=== PATIENT | male | born 1975 | race Caucasian/White ===

== ENCOUNTER 2017-06-17 01:26 | Emergency (ER) | payer BC ==
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
[2017-06-17 02:04] LABS: CHLORIDE,CL 102 mmol/L (98-110); SODIUM,NA 140 mmol/L (136-146)
[2017-06-17 04:55] VITALS: BP 115/63
--- NOTE | 2017-06-17 11:31 | CT ---
EXAM DATE: 06/17/17 PATIENT'S AGE: 42 Patient: YEVGENIY DUARTE Facility: [place], [place] : 1975 Study: CT Head STROKE PROTOCOL -06/17/2017 1:48:56 AM Ordering Physician: GINGER Final Report: INDICATION: Weakness TECHNIQUE: Head CT without contrast. COMPARISON: None FINDINGS: CSF spaces: Within normal limits for age. Brain parenchyma: Normal price-white junction. No sign of mass, hemorrhage, or midline shift. Skull base and calvarium: The visualized paranasal sinuses and mastoid air cells demonstrate no acute or significant findings. The visualized orbits are grossly unremarkable. No skull fractures. IMPRESSION: IMPRESSION:No acute findings. These findings were discussed with Dr Aguirre at 1: 55 a.m. on June 17, 2017. Please note that all CT scans at this facility use dose modulation, iterative reconstruction, and/or weight-based dosing when appropriate to reduce radiation dose to as low as reasonably achievable. Dictated by Carmen Cannon MD @ Jun 17 2017 1:55AM (Electronic Signature) Report Signed by Proxy. MTDD
--- NOTE | 2017-06-17 11:32 | CR ---
EXAM DATE: 06/17/17 PATIENT'S AGE: 42 Patient: YEVGENIY DUARTE Facility: [place], [place] Site . Site : 1975 Study: XRay Chest [id number] 2:40:27 AM Ordering Physician: Timothy Castillo Final Report: Indication: Syncopal Technique: Chest 1 view Comparison: January 16, 2017. Findings/Impression: Normal cardiomediastinal silhouette. Clear lungs and pleural spaces. Osseous structures are intact. Dictated by Carmen Cannon MD @ Jun 17 2017 3:04AM (Electronic Signature) Report Signed by Proxy. [facility]
== END 2017-06-17 05:09 | disposition home or self-care (01) ==
LOC: MW.ED 01:26
DX: R55 Syncope and collapse (principal); F17.210 Nicotine dependence, cigarettes, uncomplicated; Z88.1 Allergy status to other antibiotic agents; Z88.5 Allergy status to narcotic agent; Z88.0 Allergy status to penicillin; Z79.82 Long term (current) use of aspirin; Z79.899 Other long term (current) drug therapy
CPT/HCPCS: 70450; 71010; 80053; 80305; 84484; 85025; 85610; 93005; 99285; G0480; 99283

== ENCOUNTER 2017-10-24 12:18 | Emergency (ER) | payer OTHER ==
[2017-10-24] MEDS ORDERED: Lidocaine 1% 20 ML MDV INJECT ONE (12:56)
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
[2017-10-24 13:38] VITALS: BP 109/71
== END 2017-10-24 13:33 | disposition home or self-care (01) ==
LOC: MW.ED 12:18
DX: L02.413 Cutaneous abscess of right upper limb (principal); L03.113 Cellulitis of right upper limb; F17.210 Nicotine dependence, cigarettes, uncomplicated; Z88.1 Allergy status to other antibiotic agents; Z88.5 Allergy status to narcotic agent; Z88.0 Allergy status to penicillin; Z79.899 Other long term (current) drug therapy
CPT/HCPCS: 10060; 99283

== ENCOUNTER 2018-10-02 11:47 | Observation (INO) | payer BC, OTHER ==
[2018-10-02] MEDS ORDERED: Sodium Chloride 0.9% 10 ML Syringe FLUSH PRN (11:52)
[2018-10-02] MEDS ORDERED: Sodium Chloride 0.9% 2.5 ML Syringe FLUSH PRN (11:52)
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
[2018-10-02 12:32] LABS: CHLORIDE,CL 104 mmol/L (98-107); SODIUM,NA 138 mmol/L (136-148)
--- NOTE | 2018-10-02 12:59 | CT ---
INDICATION: Left arm and leg numbness. Prior stroke. COMPARISON: 06/17/2017. TECHNIQUE: Axial CT of the head without contrast. FINDINGS: Normal brain parenchymal morphology. No acute intracranial hemorrhage, acute infarct, focal edema, mass effect, or fracture. No midline shift. No abnormal ventricular dilatation. Normal calvarium and skull base. Mild mucosal thickening of the visualized ethmoid air cells. Remaining visualized paranasal sinuses and mastoid air cells are clear. Impression : 1. No acute intracranial abnormality. 2. Normal brain parenchymal morphology. Please note that all CT scans at this facility use dose modulation, iterative reconstruction, and/or weight-based dosing when appropriate to reduce radiation dose to as low as reasonably achievable. Dictated by Eulogio Arias MD @ Oct 02 2018 12:56PM Signed by Dr. Eulogio Arias @ Oct 02 2018 12:58PM
[2018-10-02] MEDS ORDERED: Ondansetron 4 MG/2 ML SDV IVPUSH PRN (13:58)
[2018-10-02] MEDS ORDERED: Enoxaparin 40 MG/0.4 ML Syringe SUBCUT SCH (14:00)
[2018-10-02 14:34] LABS: HEMOGLOBIN A1C 5.4 % (4.5-6.2)
[2018-10-02] MEDS: Aspirin 325 MG Tab PO SCH (15:15)
[2018-10-02] MEDS ORDERED: Acetaminophen 325 MG Tab PO PRN (15:30)
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
[2018-10-02] MEDS ORDERED: Acetaminophen/oxyCODONE 325-7.5 MG Tab PO PRN (16:57)
[2018-10-02] MEDS: Acetaminophen/oxyCODONE 325-5 MG Tab PO PRN (17:28)
[2018-10-02] MEDS: Amitriptyline 10 MG Tab PO SCH (17:29)
[2018-10-02] MEDS: DULoxetine 60 MG Cap PO SCH (21:09)
[2018-10-03 06:13] LABS: CHLORIDE,CL 105 mmol/L (98-107); SODIUM,NA 139 mmol/L (136-148)
[2018-10-03 07:55] VITALS: BP 113/84
[2018-10-03] MEDS: Amitriptyline 10 MG Tab PO SCH (08:59)
[2018-10-03] MEDS: Aspirin 325 MG Tab PO SCH (08:59)
[2018-10-03] MEDS: DULoxetine 60 MG Cap PO SCH (09:00)
[2018-10-03] MEDS: Acetaminophen/oxyCODONE 325-5 MG Tab PO PRN (09:04)
--- NOTE | 2018-10-03 10:12 | PCM.DCSUM1 ---
Discharge Summary - Discharge Data Discharge Date: 10/03/18 Discharge Disposition: Home, Self-Care 01 Condition: Stable - Patient Summary/Data Consults: Consultations 10/02/18 13:58 PT Evaluation and Treatment [CONS] Routine Hospital Course: 43-year-old male with a significant past medical history of a stroke back in 2016 who was admitted for suspected TIA. He presenting with left-sided numbness of his face and left upper extremity. Patient has had these symptoms on and off since the stroke. They were not particular worse on admission but encouraged him to come to the ED for evaluation. He had a CT scan of the head showed normal brain parenchyma. He was monitored overnight with no events on telemetry. Patient did not want to wait to get an MRI and requested discharge. At discharge patient reports his numbness had improved. He is to follow up with Dr. Valencia. - Discharge Plan *PRESCRIPTION DRUG MONITORING PROGRAM REVIEWED*: No *COPY OF PRESCRIPTION DRUG MONITORING REPORT IN PATIENT RADU: No Home Medications: Home Meds Lisinopril 30 mg PO DAILY 06/17/17 [History] atorvaSTATin [Lipitor] 40 mg PO DAILY 10/24/17 [History] Amitriptyline [Elavil] 10 mg PO DAILY 10/02/18 [History] Aspirin 325 mg PO DAILY 10/02/18 [History] DULoxetine [Cymbalta] 60 mg PO BID 10/02/18 [History] oxyCODONE HCl/Acetaminophen [Endocet 7.5-325 mg Tablet] 1 tab PO TID PRN [History] traZODone HCl [Trazodone HCl] 150 mg PO DAILY 10/02/18 [History] Forms: ED Department Discharge Referrals: PCP,Unknown [Primary Care Provider] - - Discharge Summary/Plan Comment DC Time >30 min.: No - Patient Data Vitals - Most Recent: Last Vital Signs Temp 36.1 C 10/03/18 07:54 Pulse 99 10/03/18 07:54 Resp 16 10/03/18 04:46 BP 113/84 10/03/18 07:54 Pulse Ox 97 10/03/18 04:46 Weight - Most Recent: 87.997 kg I&O - Last 24 hours: Intake & Output 10/02/18 10/03/18 10/03/18 21:59 06:59 14:59 Intake Total Output Total Balance Lab Results - Last 24 hrs: Laboratory Results - last 24 hr 10/02/18 10/02/18 10/02/18 Range/Units 12:00 12:00 12:00 WBC 6.91 (4.0-11.0) K/uL RBC 5.37 (4.50-5.90) M/uL Hgb 16.5 (13.0-17.0) g/dL Hct 47.1 (38.0-50.0) % MCV 87.7 (80.0-98.0) fL MCH 30.7 (27.0-32.0) pg MCHC 35.0 (31.0-37.0) g/dL RDW Std Deviation 44.0 (28.0-62.0) fl RDW Coeff of Lela 14 (11.0-15.0) % Plt Count 192 (150-400) K/uL MPV 9.60 (7.40-12.00) fL Neut % (Auto) 77.5 (48.0-80.0) % Lymph % (Auto) 12.3 L (16.0-40.0) % [place] % (Auto) 7.1 (0.0-15.0) % Eos % (Auto) 3.0 (0.0-7.0) % Baso % (Auto) 0.1 (0.0-1.5) % Neut # (Auto) 5.4 (1.4-5.7) K/uL Lymph # (Auto) 0.9 (0.6-2.4) K/uL [place] # (Auto) 0.5 (0.0-0.8) K/uL Eos # (Auto) 0.2 (0.0-0.7) K/uL Baso # (Auto) 0.0 (0.0-0.1) K/uL Nucleated RBC % 0.0 /100WBC Nucleated RBCs # 0 K/uL Sodium 138 (136-148) mmol/L Potassium 3.5 (3.5-5.1) mmol/L Chloride 104 (98-107) mmol/L Carbon Dioxide 22.0 (21.0-32.0) mmol/L BUN 18 (7.0-18.0) mg/dL Creatinine 1.0 (0.8-1.3) mg/dL Est Cr Clr Drug Dosing 88.13 mL/min Estimated GFR (MDRD) > 60.0 ml/min Glucose 110 H (74-106) mg/dL Hemoglobin A1c (4.5-6.2) % Calcium 8.4 L (8.5-10.1) mg/dL Total Bilirubin 0.9 (0.2-1.0) mg/dL AST 24 (15-37) IU/L ALT 44 (14-63) IU/L Alkaline Phosphatase 74 (46-116) U/L Troponin I < 0.050 (0.000-0.056) ng/mL Total Protein 7.1 (6.4-8.2) g/dL Albumin 4.2 (3.4-5.0) g/dL Globulin 2.9 (2.6-4.0) g/dL Albumin/Globulin Ratio 1.4 (0.9-1.6) Triglycerides 59 (0-200) mg/dL Cholesterol 124 (50-200) mg/dL LDL Cholesterol, Calc 54 L (60-180) mg/dL VLDL Cholesterol 11 (5-55) mg/dL HDL Cholesterol 58 (40-60) mg/dL Cholesterol/HDL Ratio 2.1 L (3.3-6.0) 10/02/18 10/03/18 10/03/18 Range/Units 12:00 04:58 04:58 WBC 5.95 (4.0-11.0) K/uL RBC 4.92 (4.50-5.90) M/uL Hgb 14.9 (13.0-17.0) g/dL Hct 43.6 (38.0-50.0) % MCV 88.6 (80.0-98.0) fL MCH 30.3 (27.0-32.0) pg MCHC 34.2 (31.0-37.0) g/dL RDW Std Deviation 44.7 (28.0-62.0) fl RDW Coeff of Lela 14 (11.0-15.0) % Plt Count 179 (150-400) K/uL MPV 10.10 (7.40-12.00) fL Neut % (Auto) 64.3 (48.0-80.0) % Lymph % (Auto) 23.5 (16.0-40.0) % [place] % (Auto) 7.4 (0.0-15.0) % Eos % (Auto) 4.5 (0.0-7.0) % Baso % (Auto) 0.3 (0.0-1.5) % Neut # (Auto) 3.8 (1.4-5.7) K/uL Lymph # (Auto) 1.4 (0.6-2.4) K/uL [place] # (Auto) 0.4 (0.0-0.8) K/uL Eos # (Auto) 0.3 (0.0-0.7) K/uL Baso # (Auto) 0.0 (0.0-0.1) K/uL Nucleated RBC % 0.0 /100WBC Nucleated RBCs # 0 K/uL Sodium 139 (136-148) mmol/L Potassium 3.6 (3.5-5.1) mmol/L Chloride 105 (98-107) mmol/L Carbon Dioxide 26.5 (21.0-32.0) mmol/L BUN 16 (7.0-18.0) mg/dL Creatinine 1.0 (0.8-1.3) mg/dL Est Cr Clr Drug Dosing 88.13 mL/min Estimated GFR (MDRD) > 60.0 ml/min Glucose 116 H (74-106) mg/dL Hemoglobin A1c 5.4 (4.5-6.2) % Calcium 8.3 L (8.5-10.1) mg/dL Total Bilirubin 0.5 (0.2-1.0) mg/dL AST 17 (15-37) IU/L ALT 40 (14-63) IU/L Alkaline Phosphatase 61 (46-116) U/L Troponin I (0.000-0.056) ng/mL Total Protein 6.4 (6.4-8.2) g/dL Albumin 3.5 (3.4-5.0) g/dL Globulin 2.9 (2.6-4.0) g/dL Albumin/Globulin Ratio 1.2 (0.9-1.6) Triglycerides (0-200) mg/dL Cholesterol (50-200) mg/dL LDL Cholesterol, Calc (60-180) mg/dL VLDL Cholesterol (5-55) mg/dL HDL Cholesterol (40-60) mg/dL Cholesterol/HDL Ratio (3.3-6.0) Med Orders - Current: Current Medications Acetaminophen (Tylenol) 650 mg PO Q6H PRN PRN Reason: Pain Last Admin: 10/02/18 15:50 Dose: 650 mg Amitriptyline HCl (Elavil) 10 mg PO DAILY [facility] Last Admin: 10/03/18 08:59 Dose: 10 mg Aspirin (Aspirin) 325 mg PO DAILY [facility] Last Admin: 10/03/18 08:59 Dose: 325 mg Duloxetine HCl (Cymbalta) 60 mg PO BID [facility] Last Admin: 10/03/18 09:00 Dose: 60 mg Enoxaparin Sodium (Lovenox) 40 mg SUBCUT Q24H [facility] Last Admin: 10/02/18 15:15 Dose: 40 mg Ondansetron HCl (Zofran) 4 mg IVPUSH Q4H PRN PRN Reason: Nausea/Vomiting Oxycodone/Acetaminophen (Percocet 325-5 Mg) 1 tab PO TID PRN PRN Reason: Pain Last Admin: 10/03/18 09:04 Dose: 1 tab Sodium Chloride (Saline Flush) 10 ml FLUSH ASDIRECTED PRN PRN Reason: Keep Vein Open Sodium Chloride (Saline Flush) 2.5 ml FLUSH ASDIRECTED PRN PRN Reason: Keep Vein Open Discontinued Medications Oxycodone/Acetaminophen (Percocet 325-7.5 Mg) 1 tab PO TID PRN PRN Reason: Pain
== END 2018-10-03 11:25 | disposition home or self-care (01) ==
LOC: MW.ED 11:47 → MW.MS 13:31
PROVIDERS: ADMIT Internal Medicine; ATTEND Internal Medicine
DX: R20.0 Anesthesia of skin (principal); R20.2 Paresthesia of skin; R51 Headache; F17.200 Nicotine dependence, unspecified, uncomplicated; Z86.73 Personal history of transient ischemic attack (TIA), and cerebral infarction without residual deficits; Z82.3 Family history of stroke; Z79.82 Long term (current) use of aspirin; Z79.899 Other long term (current) drug therapy
CPT/HCPCS: 36415; 70450; 80053; 80061; 83036; 84484; 85025; 99285; A9270; J1650; 96372; 99283; G0378

== ENCOUNTER 2019-05-10 04:51 | Emergency (ER) | payer SELFPAY ==
[2019-05-10] MEDS ORDERED: Sodium Chloride 0.9% 1,000 ML IV ONE (05:04)
[2019-05-10] MEDS ORDERED: Ketorolac 30 MG/ML SDV IVPUSH ONE (05:04)
[2019-05-10] MEDS ORDERED: Ondansetron 4 MG/2 ML SDV IVPUSH ONE (05:04)
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
[2019-05-10 05:29] LABS: BLOOD UREA NITROGEN,BUN 19 mg/dL (7.0-18.0); CARBON DIOXIDE,CO2 28.6 mmol/L (21.0-32.0); CHLORIDE,CL 104 mmol/L (98-107); GLUCOSE RANDOM 113 mg/dL (74-106); POTASSIUM,K 3.8 mmol/L (3.5-5.1); SODIUM,NA 142 mmol/L (136-148)
--- NOTE | 2019-05-10 05:50 | CT ---
INDICATION: Headache, history stroke TECHNIQUE: CT Head without i.v. contrast. COMPARISON: 10/02/2018 FINDINGS: CSF space: The ventricles are normal for age. Brain: No evidence of mass, acute infarction or hemorrhage is seen. No mass-effect or midline shift is seen. The brain parenchyma is otherwise normal in appearance with preservation of the price-white matter junction. Calvarium: Pansinusitis present with mucosal thickening and air-fluid levels noted in the frontal, ethmoid, maxillary and sphenoid sinuses. The mastoid air cells are clear. The visualized orbits are grossly unremarkable. The calvarium is unremarkable in appearance with no fractures identified. IMPRESSIONS: 1. No evidence of acute infarction, intracranial hemorrhage, or mass-effect seen. 2. Pansinusitis present with mucosal thickening and air-fluid levels noted in the frontal, ethmoid, maxillary and sphenoid sinuses. Dictated by Jamal Bucio MD @ 05/10/2019 5:49:01 AM Please note that all CT scans at this facility use dose modulation, iterative reconstruction, and/or weight-based dosing when appropriate to reduce radiation dose to as low as reasonably achievable. Dictated by: Jamal Bucio MD @ 05/10/2019 05:49:05 (Electronically Signed)
[2019-05-10] MEDS ORDERED: Levofloxacin/Dextrose 5%-Water 750 MG in Premix Bag 1 BAG IV ONE (06:00)
[2019-05-10 09:23] VITALS: BP 118/88; PULSE 88
== END 2019-05-10 08:15 | disposition home or self-care (01) ==
LOC: MW.ED 04:51
DX: J32.4 Chronic pansinusitis (principal); R53.81 Other malaise; F17.210 Nicotine dependence, cigarettes, uncomplicated; Z86.73 Personal history of transient ischemic attack (TIA), and cerebral infarction without residual deficits; Z88.5 Allergy status to narcotic agent; Z79.82 Long term (current) use of aspirin; Z79.899 Other long term (current) drug therapy
CPT/HCPCS: 36415; 70450; 80053; 84484; 85025; 93005; 96361; 96365; 96375; 99284; J1885; J1956; J2405; J7040

== ENCOUNTER 2020-01-24 15:15 | Emergency (ER) | payer SELFPAY ==
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
[2020-01-24 15:54] VITALS: BP 129/84; PULSE 100
== END 2020-01-24 15:54 ==
LOC: MW.ED 15:15
DX: F10.10 Alcohol abuse, uncomplicated (principal); F17.210 Nicotine dependence, cigarettes, uncomplicated; Z88.5 Allergy status to narcotic agent; Z79.899 Other long term (current) drug therapy; Z79.82 Long term (current) use of aspirin
CPT/HCPCS: 99282; 99284